=== PATIENT | male | born 1945 | race Hispanic/Latino ===

== ENCOUNTER 2017-04-02 19:52 | Emergency (ER) | payer OTHER ==
[~2017-04-02] VITALS: Ht 165.1 cm; Wt 81.9 kg
[2017-04-02] MEDS ORDERED: TAMIFLU75 MG PO (21:16)
[2017-04-02 21:43] VITALS: BP 154/83
== END 2017-04-02 21:44 | disposition home or self-care (01) ==
LOC: EME 19:52
DX: J10.1 Influenza due to other identified influenza virus with other respiratory manifestations (principal); J44.9 Chronic obstructive pulmonary disease, unspecified; I10 Essential (primary) hypertension; Z87.891 Personal history of nicotine dependence; Z95.1 Presence of aortocoronary bypass graft
CPT/HCPCS: 71046; 87502; 99281; 99283